=== PATIENT | female | born 1985 | race Caucasian/White ===

== ENCOUNTER 2017-11-05 15:25 | Emergency (ER) | payer OTHER ==
[~2017-11-05] VITALS: Ht 157.5 cm; Wt 82.0 kg
[~2017-11-05 15:25] MED LIST: ZYRT10TA12 PO
[2017-11-05 15:34] VITALS: BP 142/89; PULSE 96; RESP 16; TEMP 98.3; O2SAT 96
[2017-11-05] MEDS ORDERED: CETI10 PO (16:10)
[2017-11-05] MEDS ORDERED: FLUO-1 PO (16:10)
[2017-11-05] MEDS ORDERED: birth control pill PO (16:10)
[2017-11-05] MEDS ORDERED: BACT800T5 PO (17:37)
[2017-11-05] MEDS ORDERED: TRAM50TA PO (17:37)
[2017-11-05] MEDS ORDERED: ACYC800T PO (17:37)
--- NOTE | 2017-11-05 17:48 | PD ---
HPI Chief Complaint: Skin Problem Time Seen by Provider: 16:18 Travel History International Travel<30 days: No Contact w/Intl Traveler<30days: No Traveled to known affect area: No History of Present Illness HPI The patient was seen and examined in the presence of the nurse. This patient complains of infection in her right index finger. She is right handed. Duration 5 days. She's been on 3 days of Cipro with no change for the better. She says it started with a hangnail which she pulled out and then things started to get infected. She developed some redness and some blistering at the tip of her finger. Symptoms severity is moderate. No alleviating factors. Some areas are tender and worsen the pain when touching it PFSH Past Medical History Hx Anticoagulant Therapy: No Diabetes: No Tetanus Vaccination: < 5 Years Influenza Vaccination: No ?: Not LMP: 12th nov Past Surgical History Tonsillectomy: Yes Social History Alcohol Use: No Tobacco Use: No Substance Use: No Allergies-Medications (Allergen,Severity, Reaction): Uncoded Allergies: FLU SHOTS (Allergy, Severe, 11/05/17) Reported Meds & Prescriptions Reported Meds & Active Scripts Active Acyclovir 800 Mg Tab 800 Mg PO TID Bactrim DS (Sulfamethoxazole-Trimethoprim) 800-160 Mg Tab 1 Tab PO BID Tramadol (Tramadol HCl) 50 Mg Tab 50 Mg PO Q6H PRN Reported Prozac (Fluoxetine HCl) 10 Mg Cap 10 Mg PO HS [ control pill] 1 Tab PO DAILY Cetirizine (Cetirizine HCl) 10 Mg Tab 10 Mg PO DAILY Review of Systems Musculoskeletal: Positive: Pain Physical Exam Narrative Psych: Normal mood and affect. Normal insight and judgment. SKIN: Focused skin assessment reveals no rash or ulcers. Skin is warm and dry. Palpation shows no induration or nodules. Right hand: Patient has some redness and tenderness at the distal centimeter of her index finger. There are several shallow blisters at the tip with slightly cloudy fluid in them. No drainage. No tenderness to the pulp of the finger. Data Data Last Documented VS Vital Signs Date Time Temp Pulse Resp B/P (MAP) Pulse Ox O2 Delivery O2 Flow Rate FiO2 11/05/17 15:34 98.3 96 16 142/89 (106) 96 Orders Orders Wound Culture And Gram Stain (11/05/17 17:24) MDM Medical Decision Making Medical Screen Exam Complete: Yes Emergency Medical Condition: Yes Medical Record Reviewed: Yes Differential Diagnosis Abscess, cellulitis, herpetic kendrick Narrative Course I have reviewed the patient's electronic medical record. Discussed options with the patient. She would like attempted incision and drainage. Procedure note: She gives verbal consent We discussed digital block versus ethyl chloride spray and she opted for the latter I sprayed with ethyl chloride for some anesthesia affect I used an 11 blade scalpel to unroof 4 separate small blisters They contained a somewhat cloudy serous type fluid rather than marianne pus I tried to obtain culture but there was in a satisfying amount to culture so I' m skeptical as to anything will grow Tolerated well I spoke with hand surgeon Dr. Gutierrez and reviewed the case in detail. He recommended a Betadine/saline soak which we have done. He recommended that I give the patient the name and number of to get an evaluation in hand clinic I recommended stopping the Cipro and prednisone she is currently taking and prescribed Bactrim DS to help cover empirically MRSA and just in case this is a herpetic kendrick situation I prescribed some acyclovir. We discussed Tzanck prep but at this point there is no fluid to utilize I prescribed her something for pain as well Presentation does not seem consistent with felon. There is no redness or tenderness at the pulp itself. Infection seems more superficial and is ringing the nail. Does not involve the joint. Diagnosis Primary Impression: Finger infection Additional Instructions: The patient was advised to follow up with their physician and return if they worsen. The patient was warned about potential sedation for the medications they will receive on prescription. Med/Other Pt SpecificInfo: Prescription(s) given Scripts Acyclovir (Acyclovir) 800 Mg Tab 800 MG PO TID for Mgmt Viral Infection, #20 TAB 0 Refills Prov: Johnathan Heard MD 11/05/17 Sulfamethoxazole-Trimethoprim (Bactrim DS) 800-160 Mg Tab 1 TAB PO BID for Infection, #20 TAB 0 Refills Prov: Johnathan Heard MD 11/05/17 Tramadol (Tramadol) 50 Mg Tab 50 MG PO Q6H Y for PAIN, #20 TAB 0 Refills Prov: Johnathan Heard MD 11/05/17 Disposition: 01 DISCHARGE HOME Condition: Stable Johnathan Heard MD Nov 05, 2017 17:48
[2017-11-05 18:25] VITALS: BP 130/69
[2017-11-07] MEDS ORDERED: AUGM875T3 PO (09:22)
== END 2017-11-05 18:41 | disposition home or self-care (01) ==
LOC: PHED 15:25
DX: L08.9 Local infection of the skin and subcutaneous tissue, unspecified (principal)
CPT/HCPCS: 10140; 26010; 87070; 87205